=== PATIENT | male | born 1965 | race Caucasian/White ===

== ENCOUNTER → 2017-03-13 | Outpatient (CLI) | payer OTHER ==
[~2017-03-13] MED LIST: REGADENOSON 0.4 MG/5 ML SYR IVP ONE
--- NOTE | 2017-03-13 12:20 | PDCARST ---
CAR Stress Test Results Type of Stress Test: Nuclear TM stress test Indication: SCHF Description of Procedure: After informed consent was obtained, pt was exercised according to [place] Protocol. Monitoring was performed with standard stress casing tester electrode placement. Vital signs were monitored according to protocol throughout the procedure. STRESS EKG AND HEMODYNAMIC DATA. Exercise time: 6: 14 min. This is equivalent to: 7.2 METS. Resting heart rate: 86 bpm. Resting blood pressure: 156/116 mmHg. Resting O2 saturation: 96 %. Peak heart rate: 142 bpm. This is 85% of age predicted maximum heart rate response. Peak blood pressure: 210/118 mmHg. Exercise O2: 96 %. Arrhythmias: None. Reason for termination: The test was stopped due to fatigue/ shortness of breath. Symptoms: The patient experienced no typical symptoms of angina during stress or recovery. STRESS TEST ANALYSIS. Baseline ECG: SR. Stress ECG: sinus tach. No exercise induced ischemic ECG changes. Rhythm: No arrhythmias noted during exercise and recovery. Blood pressure: hypertension at rest and hypertensive blood pressure response to exercise. Exercise tolerance: The patient has average/below average exercise tolerance adjusted for age and gender. Symptoms: No exercise chest pain. Impression: The [place] Treadmill Score is 6 consistent with low cardiovascular risk (<1% annual mortality). Conclusion: Await nuclear image.
== END ==
LOC: FIMAGING 10:21
PROVIDERS: ATTEND Internal Medicine Cardiovascular Disease
DX: R94.31 Abnormal electrocardiogram [ECG] [EKG] (principal); I50.21 Acute systolic (congestive) heart failure; R06.02 Shortness of breath
CPT/HCPCS: 78452; 93017; A9500; J2785